=== PATIENT | female | born 1930 | race African-American/Black ===

== ENCOUNTER 2017-05-30 12:06 | Observation (INO) | payer MEDICARE, MEDICAID ==
[~2017-05-30] VITALS: Ht 157.5 cm; Wt 55.8 kg
[~2017-05-30 12:06] MED LIST: AMLO10TA80 PO; ASPI-1159 PO; NIFE20CA PO
[2017-05-30] MEDS ORDERED: PANTOPRAZOLE 80 MG in SODIUM CHLORIDE 0.9% 100 ML IV SCH ×2 (12:45→13:45)
[2017-05-30] MEDS ORDERED: PANTOPRAZOLE SODIUM 40 MG/VIAL IV ONE (12:45)
[2017-05-30 13:33] LABS: BASOPHILS % 0.6 % (0.0-2.0); EOSINOPHILS % 0.2 % (0.0-5.0); HEMATOCRIT. 34.1 % (36.0-48.0); HEMOGLOBIN. 11.3 g/dL (12.0-16.0); LYMPHOCYTES % 23.5 % (20.0-50.0); MEAN CORPUSCULAR HEMOGLOBIN 28.9 pg (28.0-32.0); MEAN CORPUSCULAR VOLUME 86.7 fL (81.0-99.0); MEAN PLATELET VOLUME 9.7 fl (7.4-10.4); MONOCYTES % 8.6 % (2.0-8.0); NEUTROPHILS % 67.1 % (40.0-76.0); PLATELET 92 x1000/uL (130-400); RED BLOOD CELL COUNT 3.93 mill/uL (4.2-5.4); RED CELL DISTRIBUTION WIDTH 14.1 % (11.6-14.6)
[2017-05-30 13:49] LABS: CARBON DIOXIDE 30 mEq/L (21-32); CHLORIDE 105 mEq/L (98-107)
[2017-05-30] MEDS ORDERED: SODIUM CHLORIDE 0.9% 500 ML IV ONE (13:50)
[2017-05-30] MEDS ORDERED: CLONIDINE 0.1MG TABLET PO PRN (16:15)
[2017-05-30] MEDS ORDERED: ONDANSETRON HCL 4MG/2ML VIAL IV PRN (16:15)
[2017-05-30] MEDS ORDERED: ACETAMINOPHEN 325MG TABLET PO PRN (16:15)
[2017-05-30] MEDS ORDERED: IPRATROPIUM/ALBUTEROL 0.5-3(2.5)MG/3ML NEB INH PRN (16:15)
[2017-05-30] MEDS ORDERED: FURO20TA4 PO (17:40)
[2017-05-30] MEDS ORDERED: HYDR25TA PO (17:40)
[2017-05-30] MEDS ORDERED: AMLO10TA80 PO (17:40)
[2017-05-30] MEDS ORDERED: LEVO75TA7 PO (17:40)
[2017-05-30 18:19] VITALS: BP 118/62
[2017-05-30 18:30] VITALS: BP 118/62
[2017-05-30] MEDS: DEXT 5%/0.45% NACL 1000ML 1,000 ML IV SCH (18:46)
[2017-05-30 20:00] VITALS: BP 149/75
[2017-05-31] VITALS: BP 171/66
[2017-05-31] MEDS ORDERED: HYDROCODONE/ACETAMINOPHEN 5/325MG TABLET PO PRN (00:30)
[2017-05-31] MEDS ORDERED: MORPHINE SULFATE 2 MG/ML CPJ (NOT FOR IM USE) IV PRN (00:30)
[2017-05-31] MEDS: MORPHINE SULFATE 4 MG/ML CPJ (NOT FOR IM USE) IV PRN ×2 (01:02→21:04)
[2017-05-31 04:00] VITALS: BP_SYST 117; BP_SYST 141; BP_DIAS 59; BP_DIAS 75
[2017-05-31 08:00] VITALS: BP 119/71
[2017-05-31 12:30] VITALS: BP 146/93
[2017-05-31 12:50] LABS: BASOPHILS % 0.4 % (0.0-2.0); EOSINOPHILS % 0.7 % (0.0-5.0); HEMATOCRIT. 35.7 % (36.0-48.0); HEMOGLOBIN. 11.7 g/dL (12.0-16.0); LYMPHOCYTES % 31.1 % (20.0-50.0); MEAN CORPUSCULAR HEMOGLOBIN 28.6 pg (28.0-32.0); MEAN CORPUSCULAR VOLUME 87.1 fL (81.0-99.0); MEAN PLATELET VOLUME 9.7 fl (7.4-10.4); MONOCYTES % 11.4 % (2.0-8.0); NEUTROPHILS % 56.4 % (40.0-76.0); PLATELET 91 x1000/uL (130-400)
[2017-05-31 16:00] VITALS: BP 172/80
[2017-05-31 20:00] VITALS: BP 156/68
[2017-05-31] MEDS: DEXT 5%/0.45% NACL 1000ML 1,000 ML IV SCH (21:18)
[2017-06-01] VITALS: BP 159/68
[2017-06-01] MEDS: DEXT 5%/0.45% NACL 1000ML 1,000 ML IV SCH ×2 (03:05→07:04)
[2017-06-01 04:00] VITALS: BP 141/75
[2017-06-01 08:00] VITALS: BP 174/76
[2017-06-01 12:00] LABS: BASOPHILS % 0.3 % (0.0-2.0); EOSINOPHILS % 0.8 % (0.0-5.0); HEMOGLOBIN. 12.6 g/dL (12.0-16.0); LYMPHOCYTES % 22.8 % (20.0-50.0); MEAN CORPUSCULAR HEMOGLOBIN 28.9 pg (28.0-32.0); MEAN CORPUSCULAR VOLUME 87.4 fL (81.0-99.0); MEAN PLATELET VOLUME 9.5 fl (7.4-10.4); MONOCYTES % 12.9 % (2.0-8.0); NEUTROPHILS % 63.2 % (40.0-76.0); PLATELET 93 x1000/uL (130-400); RED BLOOD CELL COUNT 4.35 mill/uL (4.2-5.4)
[2017-06-01 12:18] VITALS: BP 148/66
[2017-06-01 13:06] VITALS: BP 148/66
== END 2017-06-01 13:30 | disposition home or self-care (01) ==
LOC: ER 12:07 → INTOOBSV 13:52 → 5EST 13:52 → EDBEDREQ 13:55 → ENRESERV 15:29 → 5WST 17:30 → UNDODISIN 17:45
PROVIDERS: ADMIT Internal Medicine; ATTEND Internal Medicine
DX: K62.5 Hemorrhage of anus and rectum (principal); I10 Essential (primary) hypertension; E03.9 Hypothyroidism, unspecified; I63.9 Cerebral infarction, unspecified; N81.6 Rectocele; K80.20 Calculus of gallbladder without cholecystitis without obstruction; Z86.73 Personal history of transient ischemic attack (TIA), and cerebral infarction without residual deficits; Z90.710 Acquired absence of both cervix and uterus
CPT/HCPCS: 36415; 74176; 80048; 80053; 85025; 86850; 86900; 86901; 96361; 96365; 96366; 96375; 96376; 99291; C9113; G0378; J2270; J7030; 99285; J7050